=== PATIENT | male | born 1940 | race Caucasian/White ===

== ENCOUNTER 2019-07-29 15:52 | Inpatient (IN) | payer OTHER, MEDICAID ==
[~2019-07-29] VITALS: Ht 180.3 cm; Wt 106.6 kg
[2019-07-29 15:52] VITALS: BP_SYST 151
--- NOTE | 2019-07-29 15:52 | NUR ---
BROUGHT BACK TO BED #3 BY [facility], PLACED IN BED #3 AND TRIAGED. REPORT GIVEN TO RAFA
--- NOTE | 2019-07-29 16:05 | NUR ---
Patient brought in by ambulance in the ED c/o bilateral lower extremity swelling and pain. Denied any recent trauma or falls. Denied any chest pain, SOB or dizziness. Patient is alert and oriented x1, respirations even and unlabored, speaking in full sentences, and ambulating slowly with a steady gait. VSS, pain level 7/10. Informed of the wait time. Instructed to notify ED staff for any changes in condition or worsening of symptoms. Patient verbalized understanding.
--- NOTE | 2019-07-29 16:10 | NUR ---
ER Dr. Cordova at bedside examining patient.
[2019-07-29 16:44] LABS: EOSINOPHILS # (AUTO) 0.2 K/uL (0.0-0.4); MEAN CORPUSCULAR HGB CONC 34 % (32-36); MONOCYTES # (AUTO) 1.6 K/uL (0.0-1.0)
[2019-07-29 16:57] LABS: ANION GAP 6 (5-15); CALCIUM 7.9 mg/dL (8.4-11.0); CHLORIDE 104 mmol/L (98-107); GLUCOSE 102 mg/dL (70-99); POTASSIUM 3.7 mmol/L (3.5-5.1); SODIUM SERUM 139 mmol/L (136-145); UREA NITROGEN, BLOOD 16 mg/dL (8-21)
[2019-07-29 16:58] LABS: INR 1.1 (0.80-1.20); PROTHROMBIN TIME 11.1 SECS (9.5-12.5)
--- NOTE | 2019-07-29 17:00 | NUR ---
Patient declined IV at this time. made aware.
[2019-07-29 17:01] LABS: MEAN CORPUSCULAR HEMOGLOBIN 31 pg (27-31); MEAN CORPUSCULAR VOLUME 89 fL (79.0-98.0); RED BLOOD CELL COUNT(AUTO) 4.25 MIL/uL (4.2-6.2); WHITE BLOOD COUNT (AUTO) 8.3 K/uL (4.8-10.8)
[2019-07-29 17:02] LABS: BASOPHILS % (AUTO) 0.6 % (0.0-2.0); LYMPHOCYTES # (AUTO) 1.4 K/uL (1.0-5.5); LYMPHOCYTES % (AUTO) 16.7 % (20.5-51.5); MONOCYTES % (AUTO) 18.7 % (1.7-9.3); NEUTROPHILS # (AUTO) 5.1 K/uL (1.8-7.7); PLATELET COUNT (AUTO) 123 K/uL (130-430); RED CELL DISTRIBUTION WIDTH 15.8 % (9.0-15.0)
--- NOTE | 2019-07-29 17:04 | NUR ---
Urine specimen collected and dropped off at the lab.
[2019-07-29 17:13] LABS: ALANINE AMINOTRANSFERASE 19 U/L (12-78); ASPARTATE AMINOTRANSFERASE 14 U/L (10-37); TOTAL BILIRUBIN 0.7 mg/dL (0.0-1.0)
[2019-07-29] MEDS ORDERED: DIPHENHYDRAMINE INJ 50 MG/ML VIAL IM ONE (17:15)
[2019-07-29] MEDS ORDERED: HALOPERIDOL LACTATE 5 MG/ML VIAL IM ONE (17:15)
[2019-07-29] MEDS ORDERED: LORazepam 2 MG/ML VIAL IM ONE (17:15)
[2019-07-29 17:43] LABS: BILIRUBIN,URINE NEGATIVE (NEGATIVE); BLOOD, URINE 1+ (NEGATIVE); CLARITY/URINE CLEAR (CLEAR); COLOR,URINE YELLOW (YELLOW); GLUCOSE,URINE NEGATIVE (NEGATIVE); KETONES,URINE NEGATIVE (NEGATIVE); LEUKOCYTE ESTERASE ,URINE NEGATIVE (NEGATIVE); NITRITE, URINE NEGATIVE (NEGATIVE); PH,URINE 6.5 (5.0-8.0); PROTEIN URINE TRACE (NEGATIVE)
--- NOTE | 2019-07-29 18:06 | NUR ---
Declined IV access. Notified
[2019-07-29 18:09] LABS: BACTERIA,URINE None Seen /HPF (None Seen); MUCUS,URINE None Seen /LPF (None Seen); WBC,URINE 0-3 /HPF (0-3)
[2019-07-29] MEDS ORDERED: KETAMINE 30 MG/3 ML SYRINGE IM ONE ×2 (18:30→19:00)
[2019-07-29] MEDS ORDERED: cefTRIAXone 1 GM in D5W 50 ML IV ONE (18:30)
--- NOTE | 2019-07-29 18:34 | NUR ---
Called pharmacy for the Ketamine 30mg/3mL.
--- NOTE | 2019-07-29 19:10 | NUR ---
Received orders from Dr. Machuca. Belonging's list done. Medications reconciled.
--- NOTE | 2019-07-29 19:10 | NUR ---
MEDICATED WITH IM KETAMINE. PATIENT TOLERATED WELL. WILL CONTINUE TO MONITOR.
--- NOTE | 2019-07-29 19:12 | NUR ---
Patient reports that he needs to urinate. Patient given Urinal at this time.
[2019-07-29] MEDS ORDERED: KETAMINE 30 MG/3 ML SYRINGE ONE (19:15)
--- NOTE | 2019-07-29 19:15 | NUR ---
Report given and care transferred to EMMANUEL Miller.
[2019-07-29] MEDS ORDERED: PRO40 PO (19:20)
[2019-07-29] MEDS ORDERED: LIP10 PO (19:20)
[2019-07-29] MEDS ORDERED: SER25 PO (19:20)
[2019-07-29] MEDS ORDERED: NITSL SL (19:20)
[2019-07-29] MEDS ORDERED: MOM PO (19:20)
[2019-07-29] MEDS ORDERED: NITROGLYCERIN 0.4 MG TAB.SUBL SL PRN (19:30)
[2019-07-29] MEDS ORDERED: MILK OF MAGNESIA 30 ML UDC PO PRN (19:30)
[2019-07-29] MEDS ORDERED: cefTRIAXone 1 GM IVPB PREMIX 50 ML IV ONE ×2 (19:34→20:02)
[2019-07-29] MEDS ORDERED: cloNIDine HCL 0.1 MG TABLET PO PRN (19:45)
[2019-07-29] MEDS ORDERED: IPRATROPIUM BROM 0.5 MG/2.5 ML VIAL.NEB (ATROVENT) INH PRN (19:45)
[2019-07-29] MEDS ORDERED: ONDANSETRON HCL 4 MG/2 ML VIAL IVP PRN (19:45)
[2019-07-29] MEDS ORDERED: ALBUTEROL SULFATE 0.083% 2.5 MG/3 ML VIAL.NEB INH PRN (19:45)
[2019-07-29] MEDS ORDERED: ZOLPIDEM TARTRATE 5 MG TABLET PO PRN (19:45)
[2019-07-29] MEDS ORDERED: OLANZapine IntraMuscular 10 MG VIAL (FOR I.M. INJECTION ONLY) IM ONE (19:45)
[2019-07-29] MEDS ORDERED: ACETAMINOPHEN 650 MG SUPP.RECT RC PRN (19:45)
[2019-07-29] MEDS ORDERED: HALOPERIDOL LACTATE 5 MG/ML VIAL IVP ONE (20:00)
[2019-07-29] MEDS ORDERED: LORazepam 2 MG/ML VIAL IVP ONE (20:00)
[2019-07-29] MEDS ORDERED: DIPHENHYDRAMINE INJ 50 MG/ML VIAL IVP ONE (20:00)
--- NOTE | 2019-07-29 20:05 | NUR ---
Specimen for MRSA collected and sent to lab.
--- NOTE | 2019-07-29 20:11 | NUR ---
# 18 gauge angiocath placed to RT hand. Use of asceptic technique. Opsite placed over site. Blood return noted. Blood for lab drawn from site. Flushed with 10 cc of normal saline. No evidence of infiltration noted. Patient tolerated well.
--- NOTE | 2019-07-29 20:12 | NUR ---
Patient will be admitted to care of Telemetry . Admitted to telemetry unit. Will go to room 132 a. Belongings list completed. Complete and up to date summary report printed. SBAR report to be given at bedside with opportunity for questions.
--- NOTE | 2019-07-29 20:38 | NUR ---
ADMISSION NOTE Received patient from ER via bhaskar, received report from EMMANUEL Miller. Patient admitted with diagnosis of Cellulitis, anarsarca. Patient oriented to hospital routine, call light, toileting and safety-patient verbalized understanding.
[2019-07-29] MEDS: ATORVASTATIN 10 MG TABLET PO SCH (21:00)
[2019-07-29] MEDS: HEPARIN SODIUM,PORCINE 5000 UNITS/ML VIAL SUBCUT SCH (21:00)
[2019-07-29 21:30] VITALS: BP_SYST 159
[2019-07-29 21:33] VITALS: BP_SYST 159
--- NOTE | 2019-07-29 21:40 | NUR ---
INITIAL ASSESSMENT PATIENT IS STABLE AND IN BED. NO S/S OF RESPIRATORY DISTRESS NOTED. CALL LIGHT TEACHING WAS UNSUCCESSFUL AT THIS TIME. WILL MONITOR FREQUENTLY. BED IS LOCKED, ALARMED, AND AT THE LOWEST POSITION. PLAN OF CARE WAS DISCUSSED WITH PATIENT AT THIS TIME. FALL, SAFETY, RESPIRATORY, AND ASPIRATION PRECAUTIONS WILL BE PLACED THROUGHOUT THE SHIFT. AT THIS TIME, PATIENT REFUSED MEDICATION DESPITE EDUCATIONAL EFFORTS. WILL CONTINUE TO EDUCATE.
--- NOTE | 2019-07-29 23:40 | NUR ---
ROUNDING ASSISTED PATIENT WITH THE URINAL. PATIENT TOLERATED WELL. PATIENT SELF REPOSITION FOR COMFORT. ASSISTED WITH BLANKETS. PATIENT IS STABLE. NO S/S OF RESPIRATORY DISTRESS NOTED. CALL LIGHT IN REACH. BED IS LOCKED, ALARMED, AND AT THE LOWEST POSITION. WILL CONTINUE TO MONITOR.
[2019-07-30 00:30] VITALS: BP_SYST 159
--- NOTE | 2019-07-30 01:40 | NUR ---
ROUNDING PATIENT IS STABLE AND IN BED. ASSISTED PATIENT WITH URINAL. PATIENT TOLERATED WELL. PATIENT IS STABLE AND SHOWS NO S/S OF RESPIRATORY DISTRESS AT THIS TIME. CALL LIGHT IS WITHIN REACH. BED IS LOCKED, ALARMED, AND AT THE LOWEST POSITION. WILL CONTINUE TO MONITOR.
--- NOTE | 2019-07-30 02:58 | NUR ---
CONSULTATION PAGED/CALLED Reason for Consultation: ANASARCA Person Who was Notified: ERICA Consulting Physician: MAYCOL RAMIREZ Ordering Physician: DR. MALHOTRA FAXED FACESHEET TO DR. MARIN'S OFFICE f) [phone]
--- NOTE | 2019-07-30 03:00 | NUR ---
CONSULTATION PAGED/CALLED Reason for Consultation: PSYCH/AGITATION Person Who was Notified: ERICA Consulting Physician: DR. SAVAGE Ordering Physician: DR. MALHOTRA FAXED FACESHEET TO DR. SAVAGE'S OFFICE f)[phone]
--- NOTE | 2019-07-30 03:40 | NUR ---
ROUNDING PATIENT IS AWAKE AND CONFUSED. REORIENTED PATIENT AT THIS TIME. PATIENT IS OTHERWISE STABLE. NO S/S OF RESPIRATORY DISTRESS NOTED. CALL LIGHT IN REACH. BED IS LOCKED, ALARMED AND AT THE LOWEST POSITION. WILL CONTINUE TO MONITOR.
--- NOTE | 2019-07-30 04:34 | NUR ---
PATIENT CONFUSED PATIENT IS CONFUSED AT THIS TIME. PATIENT TRIED TO GET OUT OF BED. REORIENTED PATIENT AT THIS TIME. ASSISTED PATIENT WITH THE URINAL. PATIENT TOLERATED WELL. NO S/S OF RESPIRATORY DISTRESS NOTED. CALL LIGHT IN REACH. BED IS LOCKED, ALARMED, AND AT THE LOWEST POSITION.
--- NOTE | 2019-07-30 06:10 | NUR ---
CLOSING NOTES PATIENT USED COMMODE AT THIS TIME. PATIENT GAIT WAS UNSTEADY; HOWEVER, PATIENT REFUSED TO USE BED GAONA DESPITE EDUCATIONAL EFFORT. 3 NURSES ASSISTED PATIENT TO THE COMMODE. PATIENT IS REPOSITION IN BED. PATIENT IS OTHERWISE STABLE. NO S/S OF RESPIRATORY DISTRESS NOTED. CALL LIGHT IN REACH. BED IS LOCKED, LOWERED, AND ALARMED. FALL, RESPIRATORY, ASPIRATION, AND SAFETY PRECAUTIONS HAS BEEN PLACED THROUGHOUT THE SHIFT. WILL CONTINUE TO MONITOR UNTIL REPORT IS GIVEN TO AM NURSE.
--- NOTE | 2019-07-30 08:00 | NUR ---
PATIENT A/OX1. A-FIB ON MONITOR. IV SITE ON RIGHT HAND, #22, SL. PATIENT IS NOT RECEPTIVE TO INSTRUCTIONS, AND TOD THE NURSE TO "FUCK OFF". CALL LIGHT WAS PUT IN PLACE, BED LOCKED AT THE LOWEST POSITION WITH ALARM ON.
[2019-07-30] MEDS: PANTOPRAZOLE SODIUM 40 MG TAB PO SCH (08:23)
[2019-07-30] MEDS: QUEtiapine FUMARATE 25 MG TABLET PO SCH (08:23)
[2019-07-30] MEDS: HEPARIN SODIUM,PORCINE 5000 UNITS/ML VIAL SUBCUT SCH ×2 (08:30→21:00)
--- NOTE | 2019-07-30 09:40 | NUR ---
PATIENT REFUSED 2D ECHO AND US OF BLE DESPITE EXPLANATION OF BENEFITS.
--- NOTE | 2019-07-30 10:12 | NUR ---
Nutrition Update Matt Scale 13 noted. Pt admitted for cellulitis, anasarca. Diet: 2 gm Na BMI: 38.1 kg/m2 RD to follow per nutrition care standards.
--- NOTE | 2019-07-30 10:27 | NUR ---
PATIENT WALKED TO THE BATHROOM AND URINATED WITH RN'S ASSISTANCE.
[2019-07-30 12:26] VITALS: BP_SYST 148
[2019-07-30] MEDS ORDERED: VANCOMYCIN HCL 1,500 MG in NS 250 ML IV SCH (13:00)
--- NOTE | 2019-07-30 13:53 | NUR ---
WOUND EVALUATION: Wound Consult received from Dr. Rajan. Thank you, Dr. Rajan, for the consult. Patient received in a [place] Bed with a mattress, awake, alert, oriented x 1-2, confused. Patient is unable to turn in bed independently. Matt Score is a 13. Past Medical History: COPD, CHF, GERD, Obesity, Hyperlipidemia, chronic lower extremity edema. Recent Labs: CBC 8.3, RBC 4.25, hemoglobin 13.0, hematocrit 38.0, glucose 102, calcium 7.9, BNP 156, albumin 3.0. Microbiology: Blood culture results 2 in progress. Urine culture results negative. MRSA screen results in progress. Intrinsic factors that delay wound healing: COPD, CHF, chronic lower extremity edema. Extrinsic factors that delay wound healing: Decreased mobility. Wound Assessment: 1. Right Posterior Distal Calf: Venous Insufficiency Ulcer, present on admission. Wound bed has 100% yellow tissue. Mild odor, small yellow drainage. Periwound intact. Extremity has non-pitting edema and calor. Wound measures 8.5 cm x 6.0 cm. 2. Left Anterior Lateral Lower Extremity: Multiple scattered Venous Insufficiency Ulcers, present on admission. Wound bed has 75% yellow tissue, 10% dull red tissue, 15% brown eschar. Moderate odor, small yellow drainage. Periwounds moist. Extremity has non-pitting edema and calor. Wound measures 12.5 cm x 13.0 cm. Recommend: Cleanse wounds with normal saline. Apply moisture barrier cream to emiliano-wounds. Apply Venelex ointment to wound beds. Cover with foam dressings. Wrap with jeanmarie wrap. Perform wound care daily, and as needed for dressing soiling or dislodgement. Elevate each extremity as tolerated. Also recommend: Encourage and assist patient as needed with repositioning every 2 hours with pillow support and off-load pressure areas with pillows for pressure re-distribution. Offload, elevate and float bilateral heels with pillows. Perform skin care and monitor skin integrity Q shift. Use moisture barrier cream on buttocks and other moisture susceptible areas QID and as needed for soiling. Elevate each extremity as tolerated. Place patient on a low air-loss mattress.
[2019-07-30] MEDS ORDERED: BALSAM PERU/CASTOR OIL 60 GM OINT...G. TP ONE (14:30)
[2019-07-30] MEDS ORDERED: QUEtiapine FUMARATE 25 MG TABLET PO ONE (15:00)
--- NOTE | 2019-07-30 16:00 | NUR ---
PATIENT REFUSED TO HAVE HIS WOUNDS COVERED WITH DRESSING DESPITE EXPLANATION OF BENEFITS, AND WAS VERBALLY ABUSIVE.
[2019-07-30 16:30] VITALS: BP_SYST 154
--- NOTE | 2019-07-30 17:13 | NUR ---
ATTENDING MD DR MALHOTRA WAS CALLED, RE: TO INFORM THAT PSYCH MD DR Kathy ENAMORADO DID NOT PUT PT ON . CELLULITIS IS NOT IN GOOD SHAPE.
--- NOTE | 2019-07-30 18:20 | NUR ---
PATIENT IS EATING DINNER, TOLERATED WITHOUT DISTRESS.
[2019-07-30 19:20] VITALS: BP_SYST 143
--- NOTE | 2019-07-30 19:30 | NUR ---
INITIAL ASSESSMENT PATIENT IS STABLE AND IN BED. NO S/S OF RESPIRATORY DISTRESS NOTED. CALL LIGHT TEACHING WAS UNSUCCESSFUL AT THIS TIME. WILL MONITOR FREQUENTLY. BED IS LOCKED, ALARMED, AND AT THE LOWEST POSITION. PLAN OF CARE WAS DISCUSSED WITH PATIENT AT THIS TIME. FALL, SAFETY, RESPIRATORY, AND ASPIRATION PRECAUTIONS WILL BE PLACED THROUGHOUT THE SHIFT.
[2019-07-30] MEDS ORDERED: HALOPERIDOL LACTATE 5 MG/ML VIAL IM SCH (20:00)
[2019-07-30] MEDS ORDERED: DIPHENHYDRAMINE INJ 50 MG/ML VIAL IVP SCH (20:00)
--- NOTE | 2019-07-30 20:00 | NUR ---
WOUND CARE REFUSAL PATIENT REFUSED WOUND CARE DESPITE EDUCATIONAL EFFORTS. WILL CONTINUE TO EDUCATE THROUGHOUT THE SHIFT.
[2019-07-30] MEDS: ATORVASTATIN 10 MG TABLET PO SCH (21:00)
--- NOTE | 2019-07-30 21:30 | NUR ---
ROUNDING/AGITATION PATIENT WAS OUT OF BED AND AGITATED. PATIENT WAS SHOVING NURSES WHILE STANDING UP. PATIENT REFUSES ASSISTANCE. PATIENT WAS CONFUSED AND SHOWED WEAKNESS STANDING. REORIENTATION WAS UNSUCCESSFUL AT THIS TIME. ONE TIME MEDICATION WILL BE GIVEN AT THIS TIME. CONTINUE TO EDUCATE AND MONITOR.
[2019-07-30] MEDS: AMPICILLIN SODIUM/SULBACTAM NA 3 GM in NS 100 ML IV SCH (22:00)
--- NOTE | 2019-07-30 23:30 | NUR ---
ROUNDING/IV REPLACEMENT AT THIS TIME PATIENT IV IS INFILTRATED. IV WAS TAKEN OUT OF THE HAND. TIP INTACT AND SHOWS NO S/S OF MAJOR BLEEDING. NEW IV PLACE 18G ON RIGHT FOREARM AT THIS TIME. BLOOD RETURN WAS GOOD AND FLUSHED WELL. PATIENT TOLERATED WELL. PATIENT IS STABLE. NO S/S OF RESPIRATORY DISTRESS NOTED. CALL LIGHT IN REACH. BED IS LOCKED, ALARMED, AND AT THE LOWEST POSITION. WILL CONTINUE TO MONITOR.
[2019-07-31] VITALS: BP_SYST 153
--- NOTE | 2019-07-31 01:30 | NUR ---
ROUNDING PATIENT IS SLEEPING IN BED. NO S/S OF RESPIRATORY DISTRESS NOTED. CALL LIGHT IN REACH. BED IS LOCKED, ALARMED, AND AT THE LOWEST POSITION.
[2019-07-31] MEDS: AMPICILLIN SODIUM/SULBACTAM NA 3 GM in NS 100 ML IV SCH ×4 (02:02→22:00)
--- NOTE | 2019-07-31 03:30 | NUR ---
ROUNDING PATIENT IS STABLE. PATIENT USED THE RESTROOM AT THIS TIME. PATIENT GAIT WAS UNSTEADY AND NEEDED ASSIST. PATIENT WAS ABLE TO USE THE RESTROOM SAFELY. PATIENT WAS BOUGHT BACK TO BED AND REPOSITION FOR COMFORT. BED IS LOCKED, ALARMED, AND AT THE LOWEST POSITION. WILL CONTINUE TO MONITOR.
--- NOTE | 2019-07-31 05:30 | NUR ---
ROUNDING PATIENT IS SLEEPING IN BED. NO S/S OF RESPIRATORY DISTRESS NOTED. CALL LIGHT IN REACH. BED IS LOCKED, ALARMED, AND AT THE LOWEST POSITION. WILL CONTINUE TO MONITOR.
--- NOTE | 2019-07-31 06:19 | NUR ---
CLOSING NOTES PATIENT USED RESTROOM AT THIS TIME. PATIENT GAIT WAS UNSTEADY; HOWEVER, PATIENT REFUSED TO USE URINAL DESPITE EDUCATIONAL EFFORT. ASSISTED PATIENT TO RESTROOM. PATIENT IS REPOSITION IN BED. PATIENT IS OTHERWISE STABLE. NO S/S OF RESPIRATORY DISTRESS NOTED. CALL LIGHT IN REACH. BED IS LOCKED, LOWERED, AND ALARMED. FALL, RESPIRATORY, ASPIRATION, AND SAFETY PRECAUTIONS HAS BEEN PLACED THROUGHOUT THE SHIFT. WILL CONTINUE TO MONITOR UNTIL REPORT IS GIVEN TO AM NURSE.
[2019-07-31] MEDS: PANTOPRAZOLE SODIUM 40 MG TAB PO SCH (07:48)
[2019-07-31] MEDS: QUEtiapine FUMARATE 25 MG TABLET PO SCH ×2 (07:48→21:32)
[2019-07-31] MEDS: BALSAM PERU/CASTOR OIL 60 GM OINT...G. TP SCH (07:48)
[2019-07-31] MEDS: HEPARIN SODIUM,PORCINE 5000 UNITS/ML VIAL SUBCUT SCH ×2 (07:50→21:00)
[2019-07-31 08:00] VITALS: BP_SYST 137
--- NOTE | 2019-07-31 08:00 | NUR ---
PATIENT A/OX1. A-FIB ON MONITOR. IV SITE ON RIGHT HAND, #22, SL. PATIENT IS NOT RECEPTIVE TO INSTRUCTIONS. CALL LIGHT WAS PUT IN PLACE, BED LOCKED AT THE LOWEST POSITION WITH ALARM ON.
[2019-07-31] MEDS ORDERED: HALOPERIDOL LACTATE 5 MG/ML VIAL IM PRN (09:00)
[2019-07-31] MEDS ORDERED: LORazepam 2 MG/ML VIAL IVP PRN (09:00)
--- NOTE | 2019-07-31 09:40 | NUR ---
DR. SAVAGE IS AT BEDSIDE. ORDERS WERE GIVEN.
--- NOTE | 2019-07-31 12:05 | NUR ---
PATIENT IS EATING LUNCH, NO SIGNS OF DISTRESS NOTED.
[2019-07-31 12:55] VITALS: BP_SYST 154
[2019-07-31] MEDS ORDERED: VANCOMYCIN HCL 1,000 MG in NS 250 ML IV SCH (13:00)
[2019-07-31] MEDS ORDERED: DIPHENHYDRAMINE INJ 50 MG/ML VIAL IVP ONE (14:15)
--- NOTE | 2019-07-31 14:20 | NUR ---
Dr. Rajan is called in regards to development of wheals on the arms, urinary retention (~250ml per bladder scan), and scrotal enlargement. Vancomycin is d/c, but Ampicillin is kept. 25mg Benadryl IV will be given. Scrotal US is ordered.
--- NOTE | 2019-07-31 14:38 | NUR ---
Dietitian Recommendations * Recommend continuing 2 gm Na diet * Encourage increase PO intakes LP, RD Please refer to Nutrition Assessment for details. Addendum: 07/31/19 at [address] Amended: Links added.
--- NOTE | 2019-07-31 16:45 | NUR ---
Patient attempts to get out of bed despite instructions on safety. Patient is escorted back to bed.
[2019-07-31 17:17] VITALS: BP_SYST 128
--- NOTE | 2019-07-31 19:00 | NUR ---
Patient is eating dinner at this time. No signs of distress noted. Will delegate to next shift.
--- NOTE | 2019-07-31 19:10 | NUR ---
INITIAL NOTES PATIENT IS EATING DINNER RIGHT NOW. HE IS TOLERATING IT WELL. PATIENT IS STABLE. NO S/S OF RESPIRATORY DISTRESS NOTED. PATIENT IS UNSUCCESSFULLY DEMONSTRATES USAGE OF CALL LIGHT AT THIS TIME. CURRENTLY ASSIGNED A SITTER AND WILL CONTINUE TO MONITOR HIM. BED IS LOCKED, ALARMED, AND AT THE LOWEST POSITION. FALL, SAFETY, ASPIRATION, AND RESPIRATORY PRECAUTIONS WILL BE PLACED THROUGHOUT THE SHIFT.
[2019-07-31 19:38] VITALS: BP_SYST 155
--- NOTE | 2019-07-31 21:10 | NUR ---
ROUNDING PATIENT USED THE BED GAONA AT THIS TIME. PATIENT EDUCATED ON MEDICATION AT THIS TIME. PATIENT REFUSED HEPARIN DESPITE EDUCATIONAL EFFORTS. WILL CONTINUE TO EDUCATE IMPORTANCE. PATIENT IS OTHERWISE STABLE. NO S/S OF RESPIRATORY DISTRESS. CALL LIGHT IN REACH. BED IS LOCKED, ALARMED, AND AT THE LOWEST POSITION. WILL CONTINUE TO MONITOR.
[2019-07-31] MEDS: ATORVASTATIN 10 MG TABLET PO SCH (21:32)
--- NOTE | 2019-07-31 22:00 | NUR ---
ADMINISTERED AMPICILLIN BEFORE ADMINISTRATION OF AMPICILLIN. PATIENTS BILATERAL ARMS AND CHEST ARE PINK AND BLANCHABLE. NO S/S OF RESPIRATORY DISTRESS NOTED. PATIENTS IS STABLE. ADMINISTERED AMPICILLIN, PATIENT IS STILL STABLE. NO S/S OF RESPIRATORY DISTRESS NOTED. SKIN IS STILL PINK AND BLANCHABLE, AND NO FURTHER SIGNS OF SPREAD NOTED. PATIENT IS STABLE.
[2019-08-01] VITALS: BP_SYST 149
[2019-08-01] MEDS: AMPICILLIN SODIUM/SULBACTAM NA 3 GM in NS 100 ML IV SCH ×4 (02:08→21:00)
--- NOTE | 2019-08-01 02:20 | NUR ---
ADMINISTRATION OF AMPICILLIN 2ND DOSE PATIENTS CLENCHES HIS CHEST AND PINK (BLANCHABLE) SKIN APPEARS ON HIS STOMACH AND INNER THIGHS. MEDICATION IS STOPPED. AFTER MEDICATION IS STOPPED, PATIENT IS RESTING IN BED WITH NO S/S OF RESPIRATORY DISTRESS. SPO2 IS 98% AND RR IS 19. BLOOD PRESSURE IS 150/81. HEART RATE IS 76. WILL NOTIFY MD OF CHANGE.
--- NOTE | 2019-08-01 02:27 | NUR ---
Paged Dr. Rajan s/w Dena.
--- NOTE | 2019-08-01 03:20 | NUR ---
Tried to page Dr. Rajan for the second time, but the exchange's phone number is just keep ringing.
--- NOTE | 2019-08-01 03:37 | NUR ---
Benja yelena for Dr. Rajan s/w Dena
--- NOTE | 2019-08-01 04:11 | NUR ---
ROUNDING PATIENT IS SLEEPING IN BED AND STABLE. NO S/S OF RESPIRATORY DISTRESS NOTED. CALL LIGHT IN REACH. BED IS LOCKED, ALARMED, AND AT THE LOWEST POSITION. WILL CONTINUE TO MONITOR.
--- NOTE | 2019-08-01 04:57 | NUR ---
LAB TANGELA CAME TO DRAW LABS TODAY. PATIENT REFUSED TANGELA. EDUCATED PATIENT ON IMPORTANCE OF LAB DRAWS. PATIENT REFUSED. WILL TRY AGAIN NEXT LAB DRAWN AND CONTINUE EDUCATION.
--- NOTE | 2019-08-01 06:59 | NUR ---
CLOSING NOTES DR. MALHOTRA HAS YET TO CALL BACK. WILL ENDORSE TO AM NURSE. PATIENT IS STILL PINK (BLANCHABLE). PATIENT IS OTHERWISE STABLE. NO S/S OF RESPIRATORY DISTRESS NOTED. CALL LIGHT IN REACH. BED IS LOCKED, ALARMED, AND AT THE LOWEST POSITION. FALL, SAFETY, RESPIRATORY, AND ASPIRATION PRECAUTIONS HAS BEEN PLACED THROUGHOUT THE SHIFT. WILL CONTINUE TO MONITOR UNTIL SHIFT REPORT IS GIVEN TO AM NURSE.
--- NOTE | 2019-08-01 07:40 | NUR ---
ID MD DR MARIN WAS CALLED, RE: TO INFORM PT DEVELOPING ALLERGIC REACTION TO AMPICILLIN. SPOKE TO MICHEL.
--- NOTE | 2019-08-01 07:42 | NUR ---
DR MARIN RETURNED PAGE AND INFORMED OF PT REACTION TO AMPICILLIN AND ORDERED TO HOLD AMPICILLIN IV UNTIL HE ASSESSES PT
--- NOTE | 2019-08-01 08:00 | NUR ---
RECEIVED PT AWAKE AND REORIENTED TO PLAN OF CARE NO C/O DISCOMFORT VSS.REPOSIONTED IN BED TO EAT BREAKFAST RESP EVEN AND UNLABORED DRSG TO LEG INTACT AND DRY
[2019-08-01 08:15] VITALS: BP_SYST 149
[2019-08-01] MEDS: BALSAM PERU/CASTOR OIL 60 GM OINT...G. TP SCH (09:00)
[2019-08-01] MEDS: HEPARIN SODIUM,PORCINE 5000 UNITS/ML VIAL SUBCUT SCH ×2 (09:00→21:02)
[2019-08-01] MEDS: PANTOPRAZOLE SODIUM 40 MG TAB PO SCH (09:00)
[2019-08-01] MEDS: QUEtiapine FUMARATE 25 MG TABLET PO SCH ×3 (09:00→21:01)
[2019-08-01 09:17] LABS: BASOPHILS % (AUTO) 0.4 % (0.0-2.0); EOSINOPHILS # (AUTO) 0.3 K/uL (0.0-0.4); EOSINOPHILS % (AUTO) 4.6 % (0.0-4.0); HEMATOCRIT 40.4 % (36-54); HEMOGLOBIN 13.6 g/dL (14.0-18.0); LYMPHOCYTES # (AUTO) 0.8 K/uL (1.0-5.5); LYMPHOCYTES % (AUTO) 10.5 % (20.5-51.5); MEAN CORPUSCULAR HEMOGLOBIN 30 pg (27-31); MEAN CORPUSCULAR HGB CONC 34 % (32-36); MEAN CORPUSCULAR VOLUME 89 fL (79.0-98.0); MONOCYTES % (AUTO) 13.5 % (1.7-9.3); NEUTROPHILS # (AUTO) 5.1 K/uL (1.8-7.7); PLATELET COUNT (AUTO) 125 K/uL (130-430); RED BLOOD CELL COUNT(AUTO) 4.53 MIL/uL (4.2-6.2); RED CELL DISTRIBUTION WIDTH 15.6 % (9.0-15.0); WHITE BLOOD COUNT (AUTO) 7.2 K/uL (4.8-10.8)
[2019-08-01 10:42] LABS: ALANINE AMINOTRANSFERASE 22 U/L (12-78); ALBUMIN 2.9 g/dL (3.4-4.8); ANION GAP 7 (5-15); ASPARTATE AMINOTRANSFERASE 18 U/L (10-37); CALCIUM 8.6 mg/dL (8.4-11.0); CHLORIDE 102 mmol/L (98-107); CREATININE 0.89 mg/dL (0.55-1.30); GLUCOSE 174 mg/dL (70-99); POTASSIUM 3.6 mmol/L (3.5-5.1); SODIUM SERUM 137 mmol/L (136-145); TOTAL BILIRUBIN 1.1 mg/dL (0.0-1.0); UREA NITROGEN, BLOOD 10 mg/dL (8-21)
[2019-08-01 12:10] VITALS: BP_SYST 137
--- NOTE | 2019-08-01 12:55 | NUR ---
CONSULTATION PAGED/CALLED Reason for Consultation: [] HYDROCOELE Person Who was Notified: [] RICARDO Consulting Physician: [] BRYAN OQUENDO BEHAVIOR THERAPIST FOR PRISCILLA SHAIKH Triple Valve Tester Specialty: [] UROLOGIST Ordering Physician: [] DR Manjinder MALHOTRA
[2019-08-01] MEDS: LEVOFLOXACIN 500 MG/D5W 100 ML IV SCH (14:12)
[2019-08-01 17:00] VITALS: BP_SYST 131
[2019-08-01 20:00] VITALS: BP_SYST 140
--- NOTE | 2019-08-01 20:35 | NUR ---
PATIENT IN BED. NO ACUTE DISTRESS NOTED. TURNED REPOSITIONED Q2. WILL CONTINUE TO MONITOR.
[2019-08-01] MEDS: ATORVASTATIN 10 MG TABLET PO SCH (21:00)
--- NOTE | 2019-08-01 22:34 | NUR ---
PATIENT REFUSED EVENING DOSE OF HEPARIN.
[2019-08-01 23:32] VITALS: BP_SYST 135
[2019-08-02] MEDS: AMPICILLIN SODIUM/SULBACTAM NA 3 GM in NS 100 ML IV SCH ×4 (03:01→21:09)
--- NOTE | 2019-08-02 04:39 | NUR ---
DRS TO LOWER EXTREMITIES CHANGED. NO CHANGE IN PATIENT'S CURRENT ASSESSMENT.
[2019-08-02 08:00] VITALS: BP_SYST 152
--- NOTE | 2019-08-02 08:00 | NUR ---
ASSUMPTION OF CARE: RECEIVED PT ASLEEP, EASILY AROUSED VIA VERBAL STIMULI, ORIENTED X 1, DX:RISK FOR FLUID VOLUME EXCESS, R/T CELLULITIS, ANASARCA, VSS,FEBRILE, NO S/S OF DISTRESS, BREATH SOUNDS ARE HAVE RHONCHI TO LEFT UPPER LOBE, REMAINING LOBES ARE CLEAR, BREATHING UNLABORED, SATURATING 93% ORA, NO C/O PAIN OR DISCOMFORT, IV SITE INTACT, PATENT, NO REDNESS OR SWELLING, CALL LIGHT PLACED WITHIN REACH, SITTER AT BEDSIDE, WILL CONT' TO MONITOR AND ASSESS.
[2019-08-02] MEDS: HEPARIN SODIUM,PORCINE 5000 UNITS/ML VIAL SUBCUT SCH ×2 (08:09→22:20)
[2019-08-02] MEDS: PANTOPRAZOLE SODIUM 40 MG TAB PO SCH (08:10)
[2019-08-02] MEDS: BALSAM PERU/CASTOR OIL 60 GM OINT...G. TP SCH (08:11)
[2019-08-02] MEDS: QUEtiapine FUMARATE 25 MG TABLET PO SCH ×3 (08:11→22:17)
--- NOTE | 2019-08-02 08:30 | NUR ---
DIRECTOR UNIVERSITY: MORNING MEDS GIVEN, PER ORDERED BY Naima, TOLERATED WELL, RAMU CONT' TO MONITOR AND ASSESS.
--- NOTE | 2019-08-02 12:00 | NUR ---
NURSES NOTES: PT REMAINS STABLE, NO SIGNIFICANT CHANGES NOTED AT THIS TIME, NO C/O PAIN, REPOSITIONED IN BED, CALL LIGHT PLACED WITHIN REACH, SITTER @ BEDSIDE, WILL CONT' WITH POC.
[2019-08-02] MEDS: LEVOFLOXACIN 500 MG/D5W 100 ML IV SCH (15:23)
[2019-08-02 16:00] VITALS: BP_SYST 149
--- NOTE | 2019-08-02 16:00 | NUR ---
NURSES NOTES: PT AWAKE, WHILE SITTING UP IN BED WATCHING TELEVISION, NO S/S OF DISTRESS, NO PAIN, WILL CONT' TO MONITOR AND ASSESS.
--- NOTE | 2019-08-02 18:00 | NUR ---
END OF SHIFT: PT RESTING, DINNER MEAL COMPLETED 100%, CALL LIGHT PLACED WITHIN REACH, WILL ENDORSE TO HOTEL MAINTENANCE TECHNICIAN NURSE.
--- NOTE | 2019-08-02 19:30 | NUR ---
OPENING NOTES Patient is resting, no signs of acute respiratory distress. Patient has dry cough. IV site patent, dressings c/d/i. Call light within reach, bed alarm on, bed at lowest position. Will continue to monitor.
[2019-08-02 20:00] VITALS: BP_SYST 146
--- NOTE | 2019-08-02 21:10 | NUR ---
Patient is resting watching television, no signs of acute respiratory distress, has dry cough. Call light within reach, bed alarm on, bed at lowest position. Will continue to monitor.
[2019-08-02] MEDS: ATORVASTATIN 10 MG TABLET PO SCH (22:17)
--- NOTE | 2019-08-02 23:20 | NUR ---
Patient complains of coughing, called RT and RT at bedside giving treatment to patient. Will continue to monitor.
[2019-08-03 01:08] VITALS: BP_SYST 135
--- NOTE | 2019-08-03 01:35 | NUR ---
Patient is asleep, snoring noted, no signs of acute respiratory distress at this time. Safety precautions in place. Will continue to monitor.
[2019-08-03] MEDS: AMPICILLIN SODIUM/SULBACTAM NA 3 GM in NS 100 ML IV SCH (02:00)
--- NOTE | 2019-08-03 03:20 | NUR ---
Patient insisted on getting out of the bed and tried to get out of the bed but stayed in bed after reorienting care to the room and patient's safety. Patient was provided perineal care. Will continue to monitor.
--- NOTE | 2019-08-03 06:33 | NUR ---
CLOSING NOTES Patient is resting, no signs of acute respiratory distress observed, coughing throughout shift. IV site patent, dressings c/d/i. Patient is confused and tried to get up to go to the restroom once during the shift. Patient was reoriented to the room and cooperated with incontinent care. All needs met throughout shift. Will endorse care to oncoming shift.
[2019-08-03 07:55] VITALS: BP_SYST 142
[2019-08-03 08:05] VITALS: BP_SYST 142
--- NOTE | 2019-08-03 08:20 | NUR ---
Routine Scheduled medications given per order. Patient resting comfortably in bed with no complaint of any pain. Patient stable.
[2019-08-03] MEDS: QUEtiapine FUMARATE 25 MG TABLET PO SCH ×3 (08:21→22:06)
[2019-08-03] MEDS: PANTOPRAZOLE SODIUM 40 MG TAB PO SCH (08:21)
[2019-08-03] MEDS: HEPARIN SODIUM,PORCINE 5000 UNITS/ML VIAL SUBCUT SCH ×2 (08:25→22:13)
[2019-08-03] MEDS: LEVOFLOXACIN 500 MG/D5W 100 ML IV SCH (11:57)
--- NOTE | 2019-08-03 12:00 | NUR ---
Routine Scheduled IV abx given per order. Patient resting quietly in bed with no distress noted.
--- NOTE | 2019-08-03 13:19 | NUR ---
CONSULTATION PAGED REASON FOR CONSULTATION:HERNIA WAS CONSULT CALLED?Y PERSON WHO WAS NOTIFIED:MEKA CONSULTING PHYSICIAN:THAINA [facility]INA CONTACT CENTER DIRECTOR SPECIALTY:SURGEON CONTACT CENTER DIRECTOR PHONE NUMBER:[phone] REQUESTING PHYSICIAN:NESS DEVLIN
--- NOTE | 2019-08-03 14:30 | NUR ---
Routine Patient resting quietly in bed. Denies any pain. Patient stable.
--- NOTE | 2019-08-03 17:00 | NUR ---
Routine Patient asleep at this time.
[2019-08-03] MEDS: BALSAM PERU/CASTOR OIL 60 GM OINT...G. TP SCH (18:16)
[2019-08-03 20:00] VITALS: BP_SYST 152
--- NOTE | 2019-08-03 21:22 | NUR ---
PT RECIEVED AWAKE ALERT AND ORIENTED X3 . SKIN WARM AND INTACT . IV X2 NO THE HAND AND RIGHT SHOULDER AREA . PT IS A MED SURG . CARDIAC STATACT STABLE . PT IS FULL CODE . PT ABLE TO TOLERATE FOOD WELL . PT AMBULATE TO THE BATH ROOM . WILL CONTINUE TO MONITOR PT THROUGH THE NIGHT .
[2019-08-03] MEDS: ATORVASTATIN 10 MG TABLET PO SCH (22:14)
[2019-08-04] VITALS: BP_SYST 157
--- NOTE | 2019-08-04 | NUR ---
VITAL SIGN STABLE .PT TURNED AND REPOSITIONED .WILL CONTINUE TO MONITOR PT .
--- NOTE | 2019-08-04 05:00 | NUR ---
PT CEANED OF URINE INCONTINENCE . PT HAVE LARGE SCRUTUM PT WILL CONTINUE TO BE MONITORED .
--- NOTE | 2019-08-04 07:38 | NUR ---
OPENING NOTE Patient resting in the bed. No acute distress. Denied of pain at this time. Skin warm and dry to touch. SL intact to right hand and right shoulder, no redness, no swelling, patent. Safety measure maintained. Call light within reached. Bed locked in low position, side rails up, bed alarm on. Will continue to monitor.
[2019-08-04 07:50] VITALS: BP_SYST 132
--- NOTE | 2019-08-04 09:25 | NUR ---
CHIEF SALES OFFICER PROVIDED PERSONAL HYGIENE AND CHANGED BED LINEN.
[2019-08-04 09:33] LABS: BASOPHILS # (AUTO) 0.2 K/uL (0.0-0.2); BASOPHILS % (AUTO) 1.8 % (0.0-2.0); EOSINOPHILS # (AUTO) 0.4 K/uL (0.0-0.4); EOSINOPHILS % (AUTO) 4.9 % (0.0-4.0); HEMOGLOBIN 13.8 g/dL (14.0-18.0); LYMPHOCYTES # (AUTO) 1.2 K/uL (1.0-5.5); LYMPHOCYTES % (AUTO) 15.2 % (20.5-51.5); MEAN CORPUSCULAR HEMOGLOBIN 30 pg (27-31); MEAN CORPUSCULAR HGB CONC 34 % (32-36); MEAN CORPUSCULAR VOLUME 89 fL (79.0-98.0); MONOCYTES % (AUTO) 12.3 % (1.7-9.3); NEUTROPHILS # (AUTO) 5.4 K/uL (1.8-7.7); NEUTROPHILS % (AUTO) 65.8 % (40.0-70.0); PLATELET COUNT (AUTO) 128 K/uL (130-430); RED BLOOD CELL COUNT(AUTO) 4.58 MIL/uL (4.2-6.2); RED CELL DISTRIBUTION WIDTH 15.9 % (9.0-15.0); WHITE BLOOD COUNT (AUTO) 8.2 K/uL (4.8-10.8)
[2019-08-04] MEDS: QUEtiapine FUMARATE 25 MG TABLET PO SCH ×3 (09:42→21:48)
[2019-08-04] MEDS: PANTOPRAZOLE SODIUM 40 MG TAB PO SCH (09:42)
[2019-08-04] MEDS: BALSAM PERU/CASTOR OIL 60 GM OINT...G. TP SCH (09:43)
[2019-08-04] MEDS: HEPARIN SODIUM,PORCINE 5000 UNITS/ML VIAL SUBCUT SCH ×2 (09:45→21:51)
[2019-08-04 10:18] LABS: ANION GAP 7 (5-15); CALCIUM 8.4 mg/dL (8.4-11.0); CHLORIDE 103 mmol/L (98-107); CREATININE 0.85 mg/dL (0.55-1.30); GLUCOSE 172 mg/dL (70-99); POTASSIUM 3.7 mmol/L (3.5-5.1); SODIUM SERUM 137 mmol/L (136-145); UREA NITROGEN, BLOOD 15 mg/dL (8-21)
--- NOTE | 2019-08-04 11:10 | NUR ---
ROUND Patient resting in the bed with eyes closed. No acute distress. Safety measure maintained. Call light within reached. Bed locked in low position, side rails up, bed alarm on. Continue to monitor.
[2019-08-04 12:42] VITALS: BP_SYST 132
[2019-08-04 12:46] VITALS: BP_SYST 141
[2019-08-04] MEDS: LEVOFLOXACIN 500 MG/D5W 100 ML IV SCH (12:54)
--- NOTE | 2019-08-04 13:01 | NUR ---
ALANNA PRIETO Patient resting in the bed and watching TV. No acute distress. Safety measure maintained. Bed locked in low position, side rails up, bed alarm on. Call light within reached. Continue to monitor.
--- NOTE | 2019-08-04 15:20 | NUR ---
SEEN AND EXAMINED BY NESS ENGLE.
--- NOTE | 2019-08-04 17:05 | NUR ---
ROUND Patient resting in the bed and watching TV. No acute distress. Safety measure maintained. Call light within reached. Bed locked in low position, side rails up, bed alarm on. Continue to monitor.
[2019-08-04 17:15] VITALS: BP_SYST 159
--- NOTE | 2019-08-04 18:55 | NUR ---
CLOSING NOTE Patient resting in the bed. No acute distress. Skin warm and dry to touch. SL intact to right hand and right shoulder, no redness, no swelling, patent. All needs met. Safety measure maintained. Call light within reached. Bed locked in low position, side rails up, bed alarm on. Will endorse to night nurse.
[2019-08-04 20:00] VITALS: BP_SYST 139
--- NOTE | 2019-08-04 21:00 | NUR ---
PT RECIEVED AWAKE AND ORIENTED X3 . PT HAVE SWEELING LOWER EXTREMITIES . PT ALSO HAVE SWOLLEN SCRUTOM . VITAL SIGN STABLE . PT HAVE 2 IV ,TO THE RIGHT ARM AND TO THE RIGHT SHOULDER . PT HAVE NO C/O PAIN .PT,S VITAL SIGN STABLE . PT IS INCONTINENT OF URINE . WILL CONTINUE TO MONITOR PT FOR PAIN .
[2019-08-04] MEDS: ATORVASTATIN 10 MG TABLET PO SCH (22:02)
--- NOTE | 2019-08-05 | NUR ---
PT VITAL SIGN STABLE . PT CHANGED OF INCONTINENCE OF URINE TURNED AND REPOSITIONED . PT WILL BE MONITORED THROUGH THE NIGHT .
[2019-08-05 02:22] VITALS: BP_SYST 160
--- NOTE | 2019-08-05 06:00 | NUR ---
PT CLEAN AND DRIED . PT WILL CONTINUE TO BE MONITORED .
--- NOTE | 2019-08-05 08:00 | NUR ---
RECEIVED AWAKE AND IN NO C/O DISCOMFORT.VSS.RESP EVEN AND UNLABORED.REPOSITIONED IN BED FOR BREAKFAST.CELLULITIS TO BL LEGS NOTED.ENLARGED PROSTRATE AND DRY AT PRESENT TIME.WILL CONTINUE TO MONITOR
[2019-08-05] MEDS: HEPARIN SODIUM,PORCINE 5000 UNITS/ML VIAL SUBCUT SCH ×2 (09:00→22:00)
[2019-08-05] MEDS: PANTOPRAZOLE SODIUM 40 MG TAB PO SCH (09:03)
[2019-08-05] MEDS: QUEtiapine FUMARATE 25 MG TABLET PO SCH ×3 (09:03→21:53)
[2019-08-05 12:00] VITALS: BP_SYST 168
[2019-08-05] MEDS: LEVOFLOXACIN 500 MG/D5W 100 ML IV SCH (12:18)
[2019-08-05] MEDS: BALSAM PERU/CASTOR OIL 60 GM OINT...G. TP SCH (12:22)
[2019-08-05 16:00] VITALS: BP_SYST 169
--- NOTE | 2019-08-05 18:50 | NUR ---
no c/o pain throughout the day turned and repositioned q2h.prostrate remains enlarged and incontinent of urine.
--- NOTE | 2019-08-05 19:20 | NUR ---
Received report from the day RN. Initial assessment done. Pt. in Room Air. No s/s of sob. No s/s of pain or discomfort. Pt. denies pain. Pt. asked for food. Requesting for food @ this time.
[2019-08-05 20:00] VITALS: BP_SYST 130
--- NOTE | 2019-08-05 21:30 | NUR ---
Scheduled meds. given @ around this time - See/refer to the Emar. Pt. able to swallow meds. and water without difficulty. Pt. assisted and keep clean and dry in bed. VENEER MATCHER helped cleansed and changed pt.'s gown, chux and bed linens. Pt. given food for snacks as requested.
[2019-08-05] MEDS: ATORVASTATIN 10 MG TABLET PO SCH (21:53)
[2019-08-06 00:15] VITALS: BP_SYST 126
--- NOTE | 2019-08-06 00:30 | NUR ---
Pt. is asleep. No s/s of acute change. Keep pt. environment quiet, free from noise and dimlighted room to facilitate sleep.
--- NOTE | 2019-08-06 02:00 | NUR ---
Pt. is sleeping undisturbed. No s/s of unusuality. Pt. warm and comfortable.
--- NOTE | 2019-08-06 04:00 | NUR ---
Pt. asleep. No s/s of acute change. No s/s of RR distress. No s/s of pain or discomfort. Call-light @ the bedside within pt. 's reach.
--- NOTE | 2019-08-06 06:50 | NUR ---
Pt. awakened. Provided assistance with adl's. Keep pt. safe and clean in bed. Pt. david wait for his breakfast tray.
--- NOTE | 2019-08-06 08:00 | NUR ---
received awake and alert and no c/o discomfort.vss.set up for breakfast.resp even and unlabored.scrotum remains enlarged and incontinent of urine.will continue to monitor.call rodriguez in place
[2019-08-06] MEDS: HEPARIN SODIUM,PORCINE 5000 UNITS/ML VIAL SUBCUT SCH ×2 (09:00→21:48)
[2019-08-06] MEDS: QUEtiapine FUMARATE 25 MG TABLET PO SCH ×3 (09:18→21:42)
[2019-08-06] MEDS: PANTOPRAZOLE SODIUM 40 MG TAB PO SCH (09:20)
[2019-08-06] MEDS: BALSAM PERU/CASTOR OIL 60 GM OINT...G. TP SCH (09:21)
--- NOTE | 2019-08-06 12:00 | NUR ---
REMAINS IN NO C/O DISCOMFORT VSS TURNED Q2H INCONTINENT OF URINE AND CHANGED CONTINUE TO MONITOR
[2019-08-06 12:30] VITALS: BP_SYST 132
[2019-08-06] MEDS: LEVOFLOXACIN 500 MG/D5W 100 ML IV SCH (13:29)
--- NOTE | 2019-08-06 14:58 | NUR ---
DC PLANNING: CLINICALS HAS BEEN FAXED TO [facility] @ [facility] SPOKE WITH DOROTEO (TRANSFILL TECHNICIAN @ [facility]) @ [phone]. PATIENT IS ACCEPTED AND ROOM NUMBER IS AT STATION 3 ROOM 317-C NAHUM SPOKE WITH DR. MALHOTRA REGARDING BED IS AVAILABLE AT [facility]. STATED STILL WAITING FOR SURGEON CONSULT AND WILL POSSIBLY DC TOMORROW. CM PLACED BLS TRANSPORTATION ON WILL CALL WITH [facility] @ Addendum: 08/06/19 at 1502 by Yenny Okeefe RN CHARGE NURSE SEBLE MADE AWARE
[2019-08-06 16:43] VITALS: BP_SYST 147
--- NOTE | 2019-08-06 16:45 | NUR ---
RESTING AT PRESENT AND TURNED AND REPOSITIONED NO C/O DISCOMFORT VSS .CONTINUE TO MONITOR
--- NOTE | 2019-08-06 18:07 | NUR ---
Nutrition F/U RD reviewed pt's current EMR record including diet Hx, physician notes, nursing notes, pertinent labs/meds/procedures, care trends, and care activity. Admission Dx: Cellulitis, anasarca PMH: CHF, COPD, GERD, HLD per physician notes Current Diet Order/Nutrition Support: 2 gm Na x7 days Subjective Info: Per EMR records, pt has been tolerating diet and meeting optimal nutritional needs as PO intake records have consistently been above 75% since last RD visit 07/31/19. Current diet remains adequate/appropriate. Skin Integrity Comment: Matt scale: 14; per [employer] note 07/30/19: 1. Right Posterior Distal Calf: Venous Insufficiency Ulcer, present on admission. 2. Left Anterior Lateral Lower Extremity: Multiple scattered Venous Insufficiency Ulcers, present on admission. Current % PO 75% average x4 meals Estimated Energy Expenditure (kcals/day) 1397-3943 kcal/day (30-35 kcal/kg Adj IBW for infection, wound healing) Estimated Protein Required (g/day) 92-116 gm/day (1.2-1.5 gm/kg Adj IBW for infection, wound healing) Estimated Fluid Required (l/day) Per physician d/t CHF Problem/Etiology/Signs/Symptoms Inadequate nutritional intakes related to metabolic demands as evidenced by increased nutritional requirements. *improved Expected Outcomes/Goals - Monitor appetite and PO intakes w/ goal of pt meeting at least 75% of estimated nutritional needs, labs trending WNL, normal GI function, and skin integrity/wt maintenance Dietitian Recommendations * Recommend continuing 2 gm Na diet Follow Up Low Risk: F/U in 7 days
--- NOTE | 2019-08-06 18:09 | NUR ---
Dietitian Recommendations * Recommend continuing 2 gm Na diet LP, RD Please refer to Nutrition F/U for details.
--- NOTE | 2019-08-06 19:20 | NUR ---
Received report from the Day RN. Initial assessment done. Pt. resting, calm, quiet, in room air, breathing regular and unlabored with diminished lung sounds. No s/s of pain or discomfort. Call-light @ the bedside.
[2019-08-06 20:00] VITALS: BP_SYST 149
--- NOTE | 2019-08-06 20:00 | NUR ---
Complete assessment done and completed. Pt. quiet and behaved. Cooperative to the Nsg. staff. No s/s of anxiety and no loud talk. Given pt. snacks as requested, with good appetite and good swallowing reflex. Pt. resting in bed, provided bedside nsg. care and v/s taken and recorded.
[2019-08-06] MEDS: ATORVASTATIN 10 MG TABLET PO SCH (21:41)
--- NOTE | 2019-08-06 21:57 | NUR ---
Scheduled medications given. Pt. positioned comfortably in bed, ready to rest and sleep by this time.
[2019-08-06 23:39] VITALS: BP_SYST 149
--- NOTE | 2019-08-07 00:30 | NUR ---
Pt. calm and sleeping.
--- NOTE | 2019-08-07 02:00 | NUR ---
Pt. sleeping undisturbed. No s/s of pain or discomfort. Keep environment quiet and dimlighted.
--- NOTE | 2019-08-07 04:00 | NUR ---
Pt. sleeping and resting quietly. Keep safe and geodetic engineer bed.
--- NOTE | 2019-08-07 06:00 | NUR ---
Pt. still asleep. No s/s of pain or discomfort. Provided bedbath with the help of the CONFIGURATION DEVELOPER.
[2019-08-07 08:00] VITALS: BP_SYST 132
--- NOTE | 2019-08-07 08:00 | NUR ---
PATIENT IS AWAKE, OCCASIONALLY VERBAL, A/OX2. ON ROOM AIR. VS STABLE. CHEST RISING AND FALLING EVENLY. CALL LIGHT AT BEDSIDE. BED LOCKED AT THE LOWEST POSITION WITH ALARM ON.
[2019-08-07] MEDS: PANTOPRAZOLE SODIUM 40 MG TAB PO SCH (08:09)
[2019-08-07] MEDS: QUEtiapine FUMARATE 25 MG TABLET PO SCH (08:09)
[2019-08-07] MEDS: HEPARIN SODIUM,PORCINE 5000 UNITS/ML VIAL SUBCUT SCH (08:12)
[2019-08-07] MEDS: BALSAM PERU/CASTOR OIL 60 GM OINT...G. TP SCH (08:14)
--- NOTE | 2019-08-07 10:30 | NUR ---
PATIENT HAD AN EPISODE OF URINARY INCONTINENCE. PATENT IS CLEANED AND REPOSITIONED FOR COMFORT.
[2019-08-07] MEDS: LEVOFLOXACIN 500 MG/D5W 100 ML IV SCH (11:29)
[2019-08-07 12:38] VITALS: BP_SYST 118
--- NOTE | 2019-08-07 12:40 | NUR ---
PATIENT IS EATING LUNCH, TOLERATED WITHOUT DISTRESS.
[2019-08-07 14:59] VITALS: BP_SYST 128
--- NOTE | 2019-08-07 15:50 | NUR ---
PT TRANSFERRED Report given to Mdaeleine Woodward. Transfer packet with Transfer Orders and Medication Reconciliation form given to EMT with report. Exitcare provided. [facility] ID band removed, replaced with ID band with pt's name and . All belongings sent with patient. Patient left floor via gurney escorted by EMT in no distress.
[2019-08-08] MEDS ORDERED: LEVOFLOXACIN 500 MG TABLET PO SCH (10:00)
== END 2019-08-07 15:50 | DRG 603 ==
LOC: SED 15:52 → STU 19:07 → SMU 08-03 12:37
PROVIDERS: ADMIT Internal Medicine; ATTEND Internal Medicine
DX: L03.115 Cellulitis of right lower limb (principal); L97.929 Non-pressure chronic ulcer of unspecified part of left lower leg with unspecified severity; L03.116 Cellulitis of left lower limb; E66.9 Obesity, unspecified; E78.5 Hyperlipidemia, unspecified; N50.819 Testicular pain, unspecified; F20.9 Schizophrenia, unspecified; I50.9 Heart failure, unspecified; I73.9 Peripheral vascular disease, unspecified; J44.9 Chronic obstructive pulmonary disease, unspecified; K21.9 Gastro-esophageal reflux disease without esophagitis; K40.90 Unilateral inguinal hernia, without obstruction or gangrene, not specified as recurrent; N43.3 Hydrocele, unspecified; N49.2 Inflammatory disorders of scrotum; N50.89 Other specified disorders of the male genital organs; Z91.19 Patient's noncompliance with other medical treatment and regimen; Z68.32 Body mass index [BMI] 32.0-32.9, adult; Z79.899 Other long term (current) drug therapy
CPT/HCPCS: 36415; 71045; 76870-TC; 80048; 80053; 81000-TC; 83605; 83880; 84484; 85025; 85610-TC; 85730-TC; 87040-TC; 87070-TC; 87081; 87086; 87186-TC; 94640; 96365; 96372; 96375; 99291; G0378; J0295; J0696; J1200; J1630; J1644; J1956; J2060; J3370; J3490; J7050; J7613

== ENCOUNTER 2023-10-07 13:01 | Inpatient (IN) | payer OTHER, MEDICAID ==
[~2023-10-07] VITALS: Ht 175.3 cm; Wt 103.4 kg
[2023-10-07 13:01] VITALS: BP_SYST 119; PULSE 64; RESP 18; TEMP 98.3; O2SAT 93
[~2023-10-07 13:01] MED LIST: LIP10 PO; MOM PO; NITSL SL; PRO40 PO; SER25 PO
[2023-10-07 14:12] LABS: BASOPHILS % (AUTO) 0.5 % (0.0-2.0); EOSINOPHILS # (AUTO) 0.3 K/uL (0.0-0.4); EOSINOPHILS % (AUTO) 4.2 % (0.0-4.0); HEMATOCRIT 42.2 % (36-54); HEMOGLOBIN 14.2 g/dL (14.0-18.0); LYMPHOCYTES # (AUTO) 1.1 K/uL (1.0-5.5); LYMPHOCYTES % (AUTO) 12.9 % (20.5-51.5); MEAN CORPUSCULAR HEMOGLOBIN 29 pg (27-31); MEAN CORPUSCULAR HGB CONC 34 % (32-36); MEAN CORPUSCULAR VOLUME 86 fL (79.0-98.0); MONOCYTES # (AUTO) 1.2 K/uL (0.0-1.0); MONOCYTES % (AUTO) 15.1 % (1.7-9.3); NEUTROPHILS # (AUTO) 5.5 K/uL (1.8-7.7); NEUTROPHILS % (AUTO) 67.3 % (40.0-70.0); PLATELET COUNT (AUTO) 109 K/uL (130-430); RED BLOOD CELL COUNT(AUTO) 4.94 MIL/uL (4.2-6.2); RED CELL DISTRIBUTION WIDTH 17.2 % (9.0-15.0); WHITE BLOOD COUNT (AUTO) 8.2 K/uL (4.8-10.8)
[2023-10-07 14:16] LABS: ANION GAP 6 (5-15); CARBON DIOXIDE 32 mmol/L (23-29); CHLORIDE 103 mmol/L (98-107); CREATININE 0.61 mg/dL (0.55-1.30); GLUCOSE 93 mg/dL (74-106); POTASSIUM 4.2 mmol/L (3.5-5.1); SODIUM SERUM 141 mmol/L (136-145); UREA NITROGEN, BLOOD 16 mg/dL (8-21)
[2023-10-07 14:17] LABS: COVID19 ANTIGEN SOFIA FIA NEGATIVE (NEGATIVE)
[2023-10-07 14:18] LABS: INFLUENZA TYPE A Negative (NEGATIVE)
[2023-10-07 14:22] LABS: INFLUENZA TYPE B POSITIVE (NEGATIVE)
[2023-10-07 15:18] LABS: ABG O2 SAT% ESTIMATE 88.5 % (94.0-100.0); BLOOD GAS BASE EXCESS 5.4 mmol/L (-3.0-3.0); BLOOD GAS HCO3 31.7 mmol/L (21.0-27.0); BLOOD GAS PH 7.397 (7.350-7.450)
[2023-10-07 15:21] LABS: ALLEN'S TEST POSITIVE (P); BLOOD GAS PCO2 52.7 mmHg (32.0-45.0); BLOOD GAS PO2 55.8 mmHg (75.0-100.0)
[2023-10-07] MEDS: IPRATROPIUM/ALBUTEROL SULFATE 3 ML AMPUL.NEB (DUONEB) INH ONE (15:37)
[2023-10-07] MEDS: OSELTAMIVIR PHOSPHATE 75 MG CAPSULE PO ONE (15:49)
[2023-10-07] MEDS: HALOPERIDOL LACTATE 5 MG/ML VIAL IM ONE (15:50)
[2023-10-07] MEDS ORDERED: IPRATROPIUM/ALBUTEROL SULFATE 3 ML AMPUL.NEB (DUONEB) INH PRN (17:15)
[2023-10-07 17:33] VITALS: PULSE 78; O2SAT 88
[2023-10-07] MEDS ORDERED: FAMO20TA8 PO (17:38)
[2023-10-07] MEDS ORDERED: FERR325T30 PO (17:38)
[2023-10-07] MEDS ORDERED: ACET325C6 PO ×2 (17:38)
[2023-10-07] MEDS ORDERED: ASCO500C18 PO (17:38)
[2023-10-07] MEDS ORDERED: MULT-598 PO (17:38)
[2023-10-07 19:10] VITALS: O2SAT 93
[2023-10-07 23:00] VITALS: BP_SYST 107; PULSE 70; RESP 28; TEMP 98.9; O2SAT 92
[2023-10-07] MEDS: OSELTAMIVIR PHOSPHATE 75 MG CAPSULE PO SCH (23:10)
[2023-10-07] MEDS ORDERED: FAMOTIDINE 20 MG TABLET PO PRN (23:15)
[2023-10-07] MEDS ORDERED: QUEtiapine FUMARATE 25 MG TABLET PO PRN (23:15)
[2023-10-07] MEDS ORDERED: NITROGLYCERIN 0.4 MG TAB.SUBL SL PRN (23:15)
[2023-10-08] VITALS (10 sets, daily range): BP systolic 116–135; PULSE 64–87; RESP 17–22; TEMP 97.4–98.6; O2SAT 88–95
[2023-10-08] MEDS: IPRATROPIUM/ALBUTEROL SULFATE 3 ML AMPUL.NEB (DUONEB) INH SCH (04:16)
[2023-10-08] MEDS: FERROUS SULFATE 325 MG TABLET.DR PO SCH (08:37)
[2023-10-08] MEDS: MILK OF MAGNESIA 30 ML UDC PO SCH (08:45)
[2023-10-08] MEDS: PANTOPRAZOLE SODIUM 40 MG TAB PO SCH (08:45)
[2023-10-08] MEDS: ATORVASTATIN 10 MG TABLET PO SCH (08:45)
[2023-10-08] MEDS ORDERED: ACET325T53 PO (10:37)
[2023-10-09] VITALS (11 sets, daily range): BP systolic 116–147; PULSE 71–94; RESP 16–20; TEMP 97.8–99; O2SAT 90–99
[2023-10-09] MEDS: TEMAZEPAM 15 MG CAPSULE PO PRN (02:21)
[2023-10-09 12:18] LABS: BASOPHILS # (AUTO) 0.1 K/uL (0.0-0.2); BASOPHILS % (AUTO) 1.5 % (0.0-2.0); EOSINOPHILS # (AUTO) 0.3 K/uL (0.0-0.4); EOSINOPHILS % (AUTO) 3.2 % (0.0-4.0); HEMATOCRIT 40.2 % (36-54); HEMOGLOBIN 13.5 g/dL (14.0-18.0); LYMPHOCYTES % (AUTO) 11.4 % (20.5-51.5); MEAN CORPUSCULAR HEMOGLOBIN 29 pg (27-31); MEAN CORPUSCULAR HGB CONC 34 % (32-36); MEAN CORPUSCULAR VOLUME 86 fL (79.0-98.0); MONOCYTES # (AUTO) 1.5 K/uL (0.0-1.0); MONOCYTES % (AUTO) 17.7 % (1.7-9.3); NEUTROPHILS # (AUTO) 5.7 K/uL (1.8-7.7); NEUTROPHILS % (AUTO) 66.2 % (40.0-70.0); RED BLOOD CELL COUNT(AUTO) 4.67 MIL/uL (4.2-6.2); RED CELL DISTRIBUTION WIDTH 17.9 % (9.0-15.0); WHITE BLOOD COUNT (AUTO) 8.7 K/uL (4.8-10.8)
[2023-10-09 12:28] LABS: ANION GAP 2 (5-15); CALCIUM 8.7 mg/dL (8.4-11.0); CARBON DIOXIDE 35 mmol/L (23-29); CHLORIDE 105 mmol/L (98-107); CREATININE 0.93 mg/dL (0.55-1.30); GLUCOSE 114 mg/dL (74-106); POTASSIUM 4.2 mmol/L (3.5-5.1); SODIUM SERUM 142 mmol/L (136-145); UREA NITROGEN, BLOOD 15 mg/dL (8-21)
[2023-10-09 12:43] LABS: PLATELET COUNT (AUTO) 98 K/uL (130-430)
[2023-10-10] VITALS (7 sets, daily range): BP systolic 121–152; PULSE 65–85; RESP 16–18; TEMP 96.3–97.9; O2SAT 86–98
== END 2023-10-10 13:30 | DRG 194 ==
LOC: SED 13:01 → STU 17:14
PROVIDERS: ADMIT Family Medicine; ATTEND Family Medicine
DX: J10.08 Influenza due to other identified influenza virus with other specified pneumonia (principal); F03.92 Unspecified dementia, unspecified severity, with psychotic disturbance; J18.9 Pneumonia, unspecified organism; K21.9 Gastro-esophageal reflux disease without esophagitis; E78.5 Hyperlipidemia, unspecified; Z20.822 Contact with and (suspected) exposure to COVID-19; I11.0 Hypertensive heart disease with heart failure; I50.9 Heart failure, unspecified; I25.10 Atherosclerotic heart disease of native coronary artery without angina pectoris; Z79.899 Other long term (current) drug therapy
CPT/HCPCS: 36415; 36600; 71045; 80048; 82803; 83880; 84484; 85025; 87040; 87081; 93005; 94640; 94760; 99291; G0378; G9035; J0696; J1630; J7060